=== PATIENT | male | born 1970 | race Caucasian/White ===

== ENCOUNTER 2017-03-04 03:51 | Inpatient (IN) | payer BC ==
--- NOTE | ~2017-03-04 | DS ---
Unit #: [id number] #: [id number] Patient: HUNTER LEON [id number] [facility] [address] [place], [place] [address] [id number] I MR#: [id number] NAME: HUNTER LEON ROOM: 314 Age: 46 Sex: M Admission Date: 03/04/2017 : 1970 Discharge Date: 03/05/2017 Attending Physician: Chuck Ferraro M.D. DISCHARGE SUMMARY SHORT STAY SUMMARY HOSPITAL COURSE A 46-year-old male was transferred from [facility] and admitted to [facility] with left-sided numbness. Details are as per admission History and Physical. Patient has remained stable and his symptoms have completely resolved. Patient had a CT angiogram of the head and neck done which did not reveal any hemodynamically significant stenosis in bilateral internal carotid arteries. There was no dissection, aneurysm, or arteriovenous malformation in the head and neck. There was no significant stenosis in the [place] of [place]. Patient's MRI of the brain did not reveal any acute abnormality. No hemorrhage, mass, or acute ischemia. Patient's EEG was negative as per Neurology. Patient's hemoglobin A1c is 6.1. TSH was 0.21, but patient's free T4 was 0.64. Troponin-I was less than 0.03. Dr. Orellana has recommended that patient can be discharged home and should follow up with [facility] for further workup. The plan was discussed in detail with patient's family including his mom and his , and they showed complete understanding. PHYSICAL EXAMINATION VITAL SIGNS: Temperature of 97.3, pulse 64 per minute, respiratory rate is 14 per minute, and blood pressure is 119/80. HEENT: No conjunctival congestion. Sclerae are nonicteric. NECK: Supple. Trachea is central. RESPIRATORY: Decreased breath sounds bilaterally. No wheezes or crackles. HEART: Regular rate and rhythm, S1 and S2. ABDOMEN: Soft and nontender. Bowel sounds are present in all four quadrants. NEUROLOGIC: Patient is alert to person, place, and time. Strength is 5 over 5 bilaterally. SKIN: Warm and dry. RECOMMENDATIONS ON DISCHARGE 1. Condition is stable. 2. Activity as tolerated. DISCHARGE MEDICATIONS 1. Zoloft 100 mg p.o. every evening. 2. BuSpar 5 mg p.o. b.i.d. 3. Pravachol 20 mg p.o. at bedtime. 4. Lisinopril 10 mg p.o. daily. Unit #: [id number] #: [id number] Patient: HUNTER LEON 5. Enteric-coated aspirin 81 mg p.o. daily. 6. Vitamin B12 at 1000 mcg p.o. daily. FOLLOWUP 1. Patient is advised to follow up with primary care physician in one week. 2. Patient is advised to have TSH with primary care physician in one week for followup on patient's low TSH level. 3. Patient is advised to follow up with [facility] Neurology clinic as recommended by Dr. Orellana. 1. Dictated by... Chucky Blunt TD: 03/05/2017 21:09 JOB #: [id number] CC: Donald Walker II., M.D. Ajmal H. Bangash, M.D. DISCHARGE SUMMARY Page 1 of 1 X Chuck Ferraro MD X DISCHARGE SUMMARY
--- NOTE | ~2017-03-04 | EKG ---
PATIENT: HUNTER LEON UNIT #: [id number] Ventricular Rate: 88 BPM Atrial Rate: 88 BPM P-R Interval: 140 ms QRS Duration: 70 ms Q-T Interval: 340 ms QTC Calculation(Bezet): 411 ms P [place]: 20 degrees Calculated R [place]: 13 degrees Calculated T [place]: 15 degrees Diagnosis Line: Normal sinus rhythm Diagnosis Line: Normal ECG Diagnosis Line: No previous ECGs available Diagnosis Line: Confirmed by FLROINDA VAZQUEZ MD ([id number]) on Diagnosis Line: 03/04/2017 10:10:49 PM INTERPRETING MD: POLO
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
--- NOTE | ~2017-03-04 | EE ---
Unit #: [id number] #: [id number] Patient: HUNTER LEON [id number] [place], [place] [address] [id number] I MR#: [id number] NAME: HUNTER LEON : 1970 SEX: M STUDY DATE/TIME: 03/04/2017 UNIT: C3A PCU ROOM: 314 STUDY DESCRIPTION: EEG Attending Physician: Chuck Ferraro M.D. NEURODIAGNOSTICS REPORT PROCEDURE PERFORMED EEG. REASON FOR STUDY Transient left-sided possible weakness, blurred vision and other problems. EEG DESCRIPTION This is an inpatient, digitally recorded, multi-montage, adult EEG with leads placed according to the International 10-20 system. Hyperventilation and photic stimulation were attempted. PROCEDURE REPORT With the patient fully aroused, there is 10- to 11-Hz posterior dominant alpha rhythm, which is symmetric and attenuates with eyes opening. The patient did become drowsy, and later on, stage II sleep was seen. There were some transients seen mostly on the left side but otherwise sometimes seen on the right side, and they are very, very nonspecific. No clearcut interictal discharges or clinical events were seen. Hyperventilation was attempted, but I did not see any significant changes. Photic stimulation was attempted in intermittent stepwise pattern up to flash frequency of 30 Hz, but I did not see any driving, asymmetry or paroxysmal activity. No clinical events were seen. IMPRESSION This is an essentially normal adult, awake and asleep EEG. An EEG like this does not rule out epilepsy. Clinical correlation is recommended. Dictated by... Chucky Schmitz/rocio TD: 03/06/2017 07:34 JOB #: [id number] Unit #: [id number] #: [id number] Patient: HUNTER LEON NEURODIAGNOSTICS REPORT Page 1 of 1 X Leroy Orellana MD NEURODIAGNOSTICS REPORT
--- NOTE | ~2017-03-04 | CT17 ---
[facility] A Service of [facility] RADIOLOGY TEXT RESULTS PATIENT: HUNTER LEON LOCATION: [facility] 314-01 : [birth year] UNIT #: [id number] AGE: [address]: Chuck Ferraro MD SEX: M ORDER DR: [id number] [facility] [address] [place], [place] [address] [id number] I MR#: [id number] Acc #: [id number] NAME: HUNTER LEON : 1970 SEX: M STUDY DATE/TIME: 03/04/2017 17:42 [facility] STUDY DESCRIPTION: CT Angio Head Attending Physician: Chuck Ferraro M.D. Ordering Physician: Leroy Orellana M.D. MEDICAL IMAGING REPORT This report is preliminary unless electronic signature is present EXAM CT angiogram of the head and neck with contrast dated 03/04/17. COMPARISON MRI brain with and without contrast dated 03/04/17. No prior MRA or CTA head and neck studies. HISTORY New onset confusion today. Complicated migraine history, predominately on the left side with numbness and tingling. FINDINGS CT angiogram of the head and neck was obtained with IV contrast in the axial plane followed by multiple reformats. This CT exam was performed with one or more of the following radiation dose reduction techniques: automatic exposure control, adjustment of mA and/or kV according to patient size, and iterative reconstruction. The [place] has been reformatted in all 3 planes along with 3-D tumbled MIP images and surface rendered images with bilateral MCA snapshots. Curved reformats of all the 4 major neck arteries were also performed. These were done in a separate workstation. Neck: 3-vessel aortic arch is seen. Bilateral common, internal and external carotid arteries demonstrate expected course, caliber and flow. Left vertebral artery is dominant. Bilateral vertebral arteries demonstrate expected course and flow. Head: Bilateral intracranial internal carotid arteries, anterior and middle cerebral arteries are grossly unremarkable. A-comm is present. Well-defined posterior communicating arteries are not seen. Bilateral posterior cerebral arteries, proximal bilateral superior cerebellar arteries, basilar artery are unremarkable. Left vertebral artery is dominant and it predominantly feeds the basilar artery. The small [facility] A Service of [facility] RADIOLOGY TEXT RESULTS PATIENT: HUNTER LEON [id number] [birth year] UNIT #: [id number] AGE: [address]: Chuck Ferraro MD SEX: M ORDER DR: hypoplastic right vertebral artery further decreases in caliber after the takeoff of the right PICA, as it extends to the vertebrobasilar junction. Dural venous sinuses are patent without filling defects to suggest acute thrombosis. Extravascular soft tissues: Small air-filled internal type of bilateral laryngoceles are incidentally noted. No obvious masses seen in the pharyngeal mucosal space, particularly in the larynx. No significant lymphadenopathy. Few small incidental nonenlarged reactive lymph nodes are seen. There are no enhancing brain lesions. Refer to MRI brain for description of its findings. S-shaped nasal septal deviation is seen with mild paranasal sinus mucosal thickening. Visualized lungs do not demonstrate any significant abnormality except for small blebs along the periphery suggestive of paraseptal emphysematous changes. IMPRESSION 1. No hemodynamically flow-limiting significant stenosis in bilateral internal carotid artery bulbs per NASCET criteria. 2. No dissection, aneurysm or AVM in the head or neck. 3. No significant stenosis in the [place] with atherosclerotic changes. The right vertebral artery decreases in caliber after the takeoff of the right PICA as it extends to the vertebrobasilar junction. It is probably normal for this patient rather than due to atherosclerotic stenosis given the lack of plaques in this region. 1. Dictated by... Sherie Lemus M.D. THIS IS AN ELECTRONICALLY VERIFIED REPORT Sherie Lemus M.D. at 03/07/2017 3:33 PM CPR/pc TD: 03/05/2017 09:29 JOB #: [id number] MEDICAL IMAGING REPORT Page 1 of 1 COPY
--- NOTE | ~2017-03-04 | MR17 ---
[facility] A Service of [facility] RADIOLOGY TEXT RESULTS PATIENT: HUNTER LEON LOCATION: C3A 314- : [birth year] UNIT #: [id number] AGE: [address]: Chuck Ferraro MD SEX: M ORDER DR: [id number] [facility] [address] [place], [place] [address] [id number] I MR#: [id number] Acc #: [id number] NAME: HUNTER LEON : 1970 SEX: M STUDY DATE/TIME: 03/04/2017 15:48 UNIT: C3A PCU ROOM: 314 STUDY DESCRIPTION: MR Brain WWo Contrast Attending Physician: Chuck Ferraro M.D. Ordering Physician: Edelmira Chu A.P.R.N. MRI CENTER REPORT This report is preliminary unless electronic signature is present. EXAM Brain MRI with and without contrast, 03/04/2017 PROCEDURE Routine brain MRI with and without contrast. COMPARISON None HISTORY Left side weakness and numbness and confusion since last night. FINDINGS There is no MR evidence of acute ischemia or other restricted diffusion. There is no hydrocephalus or extraaxial fluid collection. There is no intracranial hemorrhage. Normal flow voids are seen in the cerebral vessels. There is unusual deformity of the right lateral ventricle and possibly a focal deficiency in the caudate nucleus. It is conceivable this is encephalomalacia from some prior insult but it also may be an unusual developmental anomaly, which appears more likely given normal adjacent brain parenchymal signal. Bone marrow signal is normal. The extracranial soft tissues are unremarkable. IMPRESSION No acute abnormality, no hemorrhage or mass or acute ischemia. Abnormal contour to the lateral border of the right lateral ventricle may be due to some encephalomalacia in the periventricular region but overall brain parenchymal signal is fairly normal and this may be an unusual developmental anomaly but there is no evidence of heterotopia or [facility] A Service of [facility] RADIOLOGY TEXT RESULTS PATIENT: HUNTER LEON LOCATION: A 314- : [birth year] UNIT #: [id number] AGE: [address]: Chuck Ferraro MD SEX: M ORDER DR: schizencephalic cleft. The exam is otherwise unremarkable. Dictated by... Vito Anaya M.D. THIS IS AN ELECTRONICALLY VERIFIED REPORT Vito Anaya M.D. at 03/05/2017 3:57 PM TEV/psc TD: 03/05/2017 04:56 JOB #: [id number] MRI CENTER REPORT Page 1 of 1 COPY
--- NOTE | ~2017-03-04 | HP ---
Unit #: [id number] #: [id number] Patient: HUNTER LEON [id number] [facility]. [place] [id number] [facility]. [place], [place] [address] [id number] MR#: [id number] NAME: HUNTER LEON ROOM: 314 Age: 46 Sex: M Admission Date: 03/04/2017 : 1970 Attending Physician: Chuck Ferraro M.D. HISTORY AND PHYSICAL DIAGNOSIS ON ADMISSION Complicated migraine. HISTORY OF PRESENT ILLNESS A 46-year-old male was admitted to the hospital from [facility] when he was accepted by Dr. Orellana for left-sided numbness. The patient stated that he was recently admitted to [facility], and they were unable to diagnosis what was wrong with him. He states that he had left-sided numbness and presented to [facility], but he does not remember that. As per the patient's , patient had a fall at home prior to going to [facility], and he has difficulty in focusing now. There was no history of loss of consciousness or seizure-like activity. Patient states that since (1) patient's condition is going downhill, and he is confused and weak off and on. Patient's family states that patient had an MRI done, but they said they did not get answers from [facility] and are upset. Patient is currently comfortable. He denies having any numbness. He has been seen by Neurology in consultation. He is complaining of generalized weakness. He denies sore throat or sinus congestion. There is no history of fever, chills, or cough. There is no history of recent weight loss or loss of appetite. There is no history of difficulty in speech or swallowing. Patient is not an ideal historian. PAST MEDICAL HISTORY 1. Hypertension. 2. Renal stones. 3. Admission at [facility] when he had extensive neurologic workup and was diagnosed with complicated migraine as per family. 4. Depression. 5. Anxiety disorder. 6. Hyperlipidemia. PAST SURGICAL HISTORY Left ankle fracture and open reduction and internal fixation. SOCIAL HISTORY Patient is . He smokes a half pack of cigarettes per day. He drinks socially. He denies use of illicit drugs. FAMILY HISTORY Cancer. ALLERGIES Unit #: [id number] #: [id number] Patient: HUNTER LEON. HOME MEDICATIONS 1. Pravachol 20 mg p.o. daily. 2. Zoloft 100 mg daily. 3. BuSpar 5 mg b.i.d. 4. Vitamin B12 at 1000 mcg daily. 5. Enteric-coated aspirin 81 mg p.o. daily. 6. Lisinopril 10 mg p.o. daily. PHYSICAL EXAMINATION GENERAL: Patient is comfortable lying in bed and not in any obvious acute distress. VITAL SIGNS: Temperature 98.3, pulse 87 per minute, respiratory rate 16 per minute, blood pressure is 118/72, and oxygen saturations are 98% on room air. HEENT: No conjunctival congestion. Sclerae are nonicteric. NECK: Supple. Trachea is central. RESPIRATORY: Breath sounds equal bilaterally. No wheezes or crackles. HEART: Regular rate and rhythm, S1 and S2. ABDOMEN: Soft and nontender. Bowel sounds are present in all four quadrants. NEUROLOGIC: Strength is 4+ bilaterally. SKIN: Warm and dry. DIAGNOSTIC STUDIES LABORATORY: Creatinine is 0.8, sodium 137, and potassium is 4.7. AST and ALT are within normal limits. Troponin is negative. Total cholesterol is 213, LDL is 153, triglycerides 67, and HDL is 67. WBC 6.3, hemoglobin 15.3, and platelet count is 223,000. TSH is 0.01. ESR 10. CRP is 0.6. Patient had a (2) done at [facility] which was negative. IMAGING: CT scan of the head done in [facility] Emergency Room showed no acute finding. ASSESSMENT AND PLAN A 46-year-old patient was transferred from [facility] with: 1. Possible transient ischemic attack. Patient's symptoms have completely resolved. He has been seen by Dr. Orellana who has ordered an MRI of the brain, a CT angiogram, and an EEG. The results are pending. Patient's further workup will depend upon those results. 2. Hypertension. Will continue home medications. 3. Anxiety disorder. Will continue BuSpar. 4. Depression. Will continue Zoloft. 5. Hyperlipidemia. Will continue Pravachol. 6. Patient's TSH was low. I will do a complete thyroid profile. The plan was discussed in detail with patient who showed complete understanding. The plan has been discussed in detail with patient's and mother who showed complete understanding. The plan was also discussed with Neurology. Dictated by Chucky Blunt TD: 03/04/2017 18:28 Unit #: [id number] #: [id number] Patient: HUNTER LEON JOB #: [id number] HISTORY AND PHYSICAL Page 1 of 1 X Chuck Ferraro MD HISTORY AND PHYSICAL
--- NOTE | ~2017-03-04 | CT23 ---
[facility] A Service of [facility] & [facility] RADIOLOGY TEXT RESULTS PATIENT: HUNTER LEON LOCATION: [facility] 314-01 : 70 UNIT #: [id number] AGE: [address]: Chuck Ferraro MD SEX: M ORDER DR: [id number] [facility] [address] [facility]. [place], [place] [address] [id number] I MR#: [id number] Acc #: [id number] NAME: HUNTER LEON : 1970 SEX: M STUDY DATE/TIME: 03/04/2017 17:42 UNIT: [address] ROOM: [facility] STUDY DESCRIPTION: CT Angio Neck Attending Physician: Chuck Ferraro M.D. Ordering Physician: Leroy Orellana M.D. MEDICAL IMAGING REPORT This report is preliminary unless electronic signature is present EXAM CT angiogram of the neck with contrast dated 03/04/17. HISTORY New onset confusion today. Complicated migraine history, predominately on the left side with numbness and tingling. FINDINGS Please see CT angiogram of head for results. Dictated by... Sherie Lemus M.D. THIS IS AN ELECTRONICALLY VERIFIED REPORT Sherie Lemus M.D. at 03/07/2017 3:38 PM CPR/pc TD: 03/05/2017 09:33 JOB #: [id number] MEDICAL IMAGING REPORT Page 1 of 1 COPY
[2017-03-04] MEDS ORDERED: ZOLOFT100 MG PO (06:41)
[2017-03-04] MEDS ORDERED: BUSPAR5 M1 PO (06:42)
[2017-03-04] MEDS ORDERED: VITAMIN B125000 MCG SL (06:43)
[2017-03-04] MEDS ORDERED: ZESTRIL10 M1 PO (06:44)
[2017-03-04] MEDS ORDERED: LO-DOSE ASPIRIN81 M1 PO (06:44)
[2017-03-04] MEDS ORDERED: PRAVASTATIN SOD20 MG PO (06:45)
[2017-03-04 11:47] LABS: HEMATOCRIT 46.8 % (38.0-50.0); HEMOGLOBIN 15.3 gm/dL (13.0-16.0); MEAN CELL VOLUME 88.9 FL (83-96); MEAN CORPUSCULAR HEMOGLOBIN 29.1 PG (28-34); MEAN CORPUSCULAR HGB CONC 32.7 g/dL (30-36); MEAN PLATELET VOLUME 8.6 FL (6.5-11.5); RED BLOOD COUNT 5.26 X10e (3.90-5.60); WHITE BLOOD COUNT 6.3 X10e3 (4.0-10.5)
[2017-03-04 12:33] LABS: ALBUMIN SERUM 4.1 g/dL (3.5-5.0); BILIRUBIN,TOTAL 0.8 mg/dL (0.2-2.0); BUN/CREATININE RATIO 13.75; CALCIUM SERUM 9.5 mg/dL (8.4-10.2); CREATININE SERUM 0.8 mg/dL (0.6-1.4); GLOM FILT RATE Estimated 107.2 mL/min (>60); POTASSIUM 4.7 mmol/L (3.5-5.1); PROTEIN TOTAL SERUM 6.9 g/dL (6.0-8.3)
[2017-03-04 15:22] LABS: PROTHROMBIN TIME (PATIENT) 10.8 SECONDS (10.0-11.7)
[2017-03-04 18:40] LABS: URINE APPEARANCE CLEAR; URINE BILIRUBIN NEG (NEG); URINE BLOOD NEG (NEG); URINE COLOR YELLOW; URINE GLUCOSE 100 MG/DL (NEG); URINE KETONE NEG (NEG); URINE LEUKOCYTE ESTERASE NEG (NEG); URINE NITRATE NEG (NEG); URINE PH 6.5 (5-8); URINE PROTEIN NEG (NEG)
[2017-03-19 17:14] LABS: T3 TOTAL 102 ng/dL (76-181)
== END 2017-03-05 15:17 | disposition home or self-care (01) | DRG 93 ==
LOC: C3A PCU 03:51
PROVIDERS: Internal Medicine; Nurse Practitioner
PROC: B325YZZ Computerized Tomography (CT Scan) of Bilateral Common Carotid Arteries using Other Contrast (ICD-10-PCS; principal; 2017-03-04)
PROC: B32RYZZ Computerized Tomography (CT Scan) of Intracranial Arteries using Other Contrast (ICD-10-PCS; 2017-03-04)
PROC: B32GYZZ Computerized Tomography (CT Scan) of Bilateral Vertebral Arteries using Other Contrast (ICD-10-PCS; 2017-03-04)
PROC: B328YZZ Computerized Tomography (CT Scan) of Bilateral Internal Carotid Arteries using Other Contrast (ICD-10-PCS; 2017-03-04)
DX: R20.8 Other disturbances of skin sensation (principal); I10 Essential (primary) hypertension; R29.818 Other symptoms and signs involving the nervous system; R53.1 Weakness; G43.109 Migraine with aura, not intractable, without status migrainosus; Z87.442 Personal history of urinary calculi; F41.9 Anxiety disorder, unspecified; F32.9 Major depressive disorder, single episode, unspecified; E78.5 Hyperlipidemia, unspecified; F17.210 Nicotine dependence, cigarettes, uncomplicated; Z88.0 Allergy status to penicillin; R41.82 Altered mental status, unspecified
CPT/HCPCS: 70496; 70498; 70553; 80053; 80061; 81003; 82550; 83036; 84436; 84439; 84443; 84480; 84484; 85027; 85610; 85652; 86140; 93005; 95816; 97116; 97161; 97165; A9577; Q9967